=== PATIENT | male | born 1985 | race Caucasian/White ===

== ENCOUNTER 2018-01-08 18:58 | Emergency (ER) | payer OTHER ==
[2018-01-08] MEDS ORDERED: DIPHTH,PERTUSS(ACELL),TET 0.5 ML DISP.SYRIN IM ONE (20:01)
[2018-01-08] MEDS ORDERED: AMOX TR/POT CLAV 875MG/125MG TABLETS (FP) PO ONE (20:01)
--- NOTE | 2018-01-08 20:01 | PDOC ---
Rapid Medical Evaluation Chief Complaint: Bite Time Seen by Provider: 01/08/18 19:59 Medical Evaluation: 01/08/18 19:59 I have performed a brief in-person evaluation of this patient. The patient presents with a chief complaint of: dog bite by "[facility]" at 5: 30 am, domestic animal, tdap status unknown Pertinent physical exam findings: two lacs to R index finger I have ordered the following: tdap, augmentin The patient will proceed to the ED for further evaluation. Discharge Disposition - Diagnosis Dog bite - Referrals - Patient Instructions - Post Discharge Activity
[2018-01-08] MEDS ORDERED: AMOX TR/POT CLAV 875MG/125MG TABLETS (FP) ONE (20:09)
[2018-01-08 20:14] VITALS: BP 133/79; PULSE 88; TEMP 98.2; BMI 37.6
--- NOTE | 2018-01-08 21:36 | PDOC ---
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 As per patient the dog was on a leash being held by the optometrist/practice owner within his yard but the dog pulled ran around the fence and while the patient was putting out his hand the dog bit his right finger. As per patient the optometrist/practice owner stated the dog is fully vaccinated including rabies and can provide this information if needed. Patient denies difficulty moving his finger and denies history of diabetes. Timing/Duration: 1-3 hours Severity: mild Associated Symptoms: reports: denies symptoms Past History - Travel Traveled outside of the country in the last 30 days: No - Past Medical History Allergies/Adverse Reactions: Allergies Allergy/AdvReac Type Severity Reaction Status Date / Time No Known Allergies Allergy Verified 01/08/18 20:01 Home Medications: Ambulatory Orders Amoxicillin/Potassium Clav [Augmentin 875-125 Tablet] 1 each PO BID #13 tablet 01/08/18 COPD: No - Suicide/Smoking/Psychosocial Hx Smoking History: Never smoked Have you smoked in the past 12 months: No Information on smoking cessation initiated: No Hx Alcohol Use: No Drug/Substance Use Hx: No Substance Use Type: None Patient Lives Alone: No Lives with/in: spouse/SO Review of Systems - Review of Systems Able to Perform ROS?: No Constitutional: No: Symptoms Reported Integumentary: Yes: See HPI Neurological: No: Symptoms reported *Physical Exam - Vital Signs Last Vital Signs Temp Pulse Resp BP Pulse Ox 98.2 F 88 18 133/79 100 01/08/18 19:59 01/08/18 19:59 01/08/18 19:59 01/08/18 19:59 01/08/18 19:59 - Physical Exam General Appearance: Yes: Nourished, Appropriately Dressed. No: Apparent Distress Extremity: positive: Normal Capillary Refill. negative: Pedal Edema Integumentary: positive: Normal Color, Warm, Other (2 lacerations to the dorsal aspect right second digit) Neurologic: positive: Motor Strength 5/5 (ambulatory) Procedures - Laceration/Wound Repair Right Finger Wound Length: 2.6 to 5.0 cm Wound Explored: clean Wound's Depth, Shape: superficial, linear Irrigated w/ Saline: Yes Betadine Prep: Yes Anesthesia: 1% Lidocaine Amount of Anesthetic (ccs): 2 Wound Debrided: minimal Wound Repaired With: Sutures Suture Size/Type: 5:0 Number of Sutures: 9 Splint Applied: Yes (metal finger splint) ED Treatment Course - RADIOLOGY Radiology Studies Ordered: Category Date Time Status FINGER(S) RIGHT [RAD] Stat Radiology 01/08/18 20:10 Ordered - Medications Given in the ED: ED Medications Discontinued Medications Generic Name Dose Route Start Last Admin Trade Name Freq PRN Reason Stop Dose Admin Amoxicillin/Clavulanate Potassium 1 tab 01/08/18 20:01 01/08/18 20:14 Augmentin - 875mg Tablet PO 01/08/18 20:02 1 tab ONCE ONE Administration Diphtheria/Tetanus/Acell Pertussis 0.5 ml 01/08/18 20:01 01/08/18 20:14 Boostrix - IM 01/08/18 20:02 0.5 ml .ONCE ONE Administration Medical Decision Making - Medical Decision Making 01/08/18 21:34 Patient with dog bite. Patient completed the rabies form and states he was able to provide rabies documentation if needed. Patient had an x-ray to rule out fracture. Patient also given tetanus and Augmentin here in the ER. Laceration repair done without difficulty. Patient given metal splint and to return here in 2 weeks *DC/Admit/Observation/Transfer Diagnosis at time of Disposition: Dog bite - Discharge Dispostion Disposition: HOME Condition at time of disposition: Good - Prescriptions Prescriptions: Amoxicillin/Potassium Clav [Augmentin 875-125 Tablet] 1 each PO BID #13 tablet - Referrals - Patient Instructions Printed Discharge Instructions: How to Care for a Domestic Animal Bite Additional Instructions: Return in 2 weeks for suture removal. please take antibiotics as prescribed. If you notice any redness swelling or drainage from the site please return sooner as this may be a sign of a worsening infection. - Post Discharge Activity Forms/Work/School Notes: Back to Work
== END 2018-01-08 21:39 | disposition home or self-care (01) ==
LOC: JERFT 18:58
PROC: 0HQFXZZ Repair Right Hand Skin, External Approach (ICD-10-PCS; principal; 2018-01-08)
PROC: 3E0234Z Introduction of Serum, Toxoid and Vaccine into Muscle, Percutaneous Approach (ICD-10-PCS; 2018-01-08)
PROC: 2W3JX1Z Immobilization of Right Finger using Splint (ICD-10-PCS; 2018-01-08)
DX: S61.250A Open bite of right index finger without damage to nail, initial encounter (principal); W54.0XXA Bitten by dog, initial encounter; Y93.89 Activity, other specified; Y92.017 Garden or yard in single-family (private) house as the place of occurrence of the external cause; Y99.0 Civilian activity done for income or pay
CPT/HCPCS: 73140-TC-RT-FY; 90715; 99281-25